=== PATIENT | female | born 1940 | race Caucasian/White ===

== ENCOUNTER → 2017-03-15 | Outpatient (CLI) | payer OTHER, BC ==
[~2017-03-15] MED LIST: CALCIUM OYSTER500 MG; CARB-LEVO PO; EVISTA; EXCEDRIN CAPLE1 EACH; FIBER0.52 GM; FISH OIL 1,0001 EAC5; LOVASTAT10; MULTIVITAMINS; NORCO 5-325 TA1 EACH PO; PREDNISONE 20 M20 M1 PO; TIROSINT88 MCG; VITAMIN C 250250 MG; VITAMIN D1000 UNI1
== END ==
LOC: RAD 01:44
DX: Z12.31 Encounter for screening mammogram for malignant neoplasm of breast (principal)

== ENCOUNTER → 2017-09-27 | Outpatient (CLI) | payer OTHER, BC | LOC: RAD 00:42 | DX: Z09 Encounter for follow-up examination after completed treatment for conditions other than malignant neoplasm (principal); N63.10 Unspecified lump in the right breast, unspecified quadrant; R92.8 Other abnormal and inconclusive findings on diagnostic imaging of breast ==

== ENCOUNTER → 2019-07-30 | Outpatient (CLI) | payer OTHER, BC | LOC: BC 10:04 | DX: Z12.31 Encounter for screening mammogram for malignant neoplasm of breast (principal) ==